=== PATIENT | male | born 1970 | race Caucasian/White ===

== ENCOUNTER 2018-01-18 08:54 | Emergency (ER) | payer BC ==
[~2018-01-18] VITALS: Ht 188 cm; Wt 117.9 kg
[~2018-01-18 08:54] MED LIST: MOBIC15 MG; VALSARTAN/HCTZ
[2018-01-18] MEDS ORDERED: OXYCODONE HCL 55 MG PO (09:04)
[2018-01-18 09:19] VITALS: BP 137/69
== END 2018-01-18 09:20 | disposition home or self-care (01) ==
LOC: M.ERS 08:54
DX: S60.562A Insect bite (nonvenomous) of left hand, initial encounter (principal); S60.561A Insect bite (nonvenomous) of right hand, initial encounter; W57.XXXA Bitten or stung by nonvenomous insect and other nonvenomous arthropods, initial encounter; Y93.89 Activity, other specified; Y92.89 Other specified places as the place of occurrence of the external cause; Y99.8 Other external cause status